=== PATIENT | female | born 1980 | race Caucasian/White ===

== ENCOUNTER 2017-11-29 17:56 | Emergency (ER) | payer MEDICAID ==
[~2017-11-29] VITALS: Ht 160 cm; Wt 73.0 kg
[~2017-11-29 17:56] MED LIST: MOTRIN
[2017-11-29 18:01] VITALS: BP 148/67
[2017-11-29] MEDS ORDERED: ACET-2178 PO (18:04)
[2017-11-29 19:58] LABS: BASOPHILS % 0.4 % (0.0-2.0); EOSINOPHILS % 0.3 % (0.0-5.0); HEMATOCRIT. 33.6 % (36.0-48.0); HEMOGLOBIN. 10.6 g/dL (12.0-16.0); LYMPHOCYTES % 22.9 % (20.0-50.0); MEAN CORPUSCULAR HEMOGLOBIN 22.2 pg (28.0-32.0); MEAN CORPUSCULAR VOLUME 70.6 fL (81.0-99.0); MEAN PLATELET VOLUME 7.7 fl (7.4-10.4); MONOCYTES % 8.2 % (2.0-8.0); NEUTROPHILS % 68.2 % (40.0-76.0); PLATELET 339 x1000/uL (130-400); RED BLOOD CELL COUNT 4.77 mill/uL (4.2-5.4); RED CELL DISTRIBUTION WIDTH 20.7 % (11.6-14.6)
[2017-11-29 20:04] LABS: CHLORIDE 104 mEq/L (98-107)
== END 2017-11-29 22:00 | disposition left against medical advice (07) ==
LOC: ER 20:12
DX: R11.2 Nausea with vomiting, unspecified (principal); R10.13 Epigastric pain; R50.9 Fever, unspecified
CPT/HCPCS: 36415; 80053; 83690; 85025; 85610; 99284

== ENCOUNTER 2022-04-19 15:52 | Emergency (ER) | payer MEDICAID ==
[~2022-04-19] VITALS: Ht 167.6 cm; Wt 66.0 kg
[~2022-04-19 15:52] MED LIST changes: +TOPUD PO
[2022-04-19] MEDS ORDERED: LIDOCAINE HCL 1% 20ML VIAL (Pyxis) INJ INFIL ONE (20:15)
[2022-04-19] MEDS ORDERED: LIDOCAINE HCL 1% 10 MG/ML 10ML VIAL IJ SCH (20:30)
[2022-04-19] MEDS ORDERED: SULF1TAB48 MT (21:26)
[2022-04-19 21:29] VITALS: BP 133/85
== END 2022-04-19 21:30 | disposition home or self-care (01) ==
LOC: ER 15:52
DX: L03.011 Cellulitis of right finger (principal)
CPT/HCPCS: 10060; 99282; J3490